=== PATIENT | female | born 1955 | race Caucasian/White ===

== ENCOUNTER 2016-11-08 11:00 | Inpatient (IN) | payer BC, MEDICAID ==
[~2016-11-08] VITALS: Ht 175.2 cm; Wt 65.5 kg
[2016-11-08] MEDS ORDERED: XANAX0.5 MG PO (12:01)
[2016-11-08] MEDS ORDERED: BACLOFEN20 M1 PO (12:02)
[2016-11-08] MEDS ORDERED: LEXAPRO20 MG PO (12:03)
[2016-11-08] MEDS ORDERED: ASPIRIN CHEWABL81 MG PO (14:55)
[2016-11-08] MEDS ORDERED: OXYCODONE AND A1 T12 PO (14:56)
[2016-11-08] MEDS ORDERED: PRILOSEC20 M1 PO (14:57)
[2016-11-08] MEDS ORDERED: LYRICA100 M1 PO (14:57)
[2016-11-08 20:47] VITALS: BP 124/65
[2016-11-08 22:15] LABS: BILIRUBIN NEGATIVE (NEGATIVE); BLOOD 3+ (NEGATIVE); CLARITY SL CLOUDY (CLEAR); COLOR YELLOW (YELLOW); GLUCOSE NEGATIVE (NEGATIVE); KETONE NEGATIVE (NEGATIVE); LEUKO ESTERASE TRACE (NEGATIVE); NITRITE NEGATIVE (NEGATIVE); PH 5.5 (5.0-9.0); PROTEIN NEGATIVE (NEGATIVE); SPECIFIC GRAVITY 1.025 (1.005-1.030); UROBILINOGEN 0.2 E.U./dl (0.2-1.0)
[2016-11-08 22:27] LABS: EPITHELIAL CELLS 35-40
[2016-11-08 22:28] LABS: BACTERIA TRACE; RBC 21-30 rbc/hpf (0-2); URINE REFLEX COMMENT YES (NO)
[2016-11-09 06:39] LABS: BASO % 0.5 % (0.0-1.0); EOS # 0.2 10*3/uL (0.0-0.4); EOS % 2.8 % (1.0-4.0); HEMOGLOBIN 11.8 g/dl (12.0-16.0); LYMPH # 1.7 10*3/uL (1.3-4.4); LYMPH % 29.4 % (27.0-41.0); MEAN CORPUSCULAR HGB 30.8 pg (27.0-31.0); MEAN CORPUSCULAR HGB CONC 32.8 g/dl (33.0-37.0); MEAN PLATELET VOLUME 10.6 fl (9.6-12.3); MONO # 0.5 10*3/uL (0.1-1.0); MONO % 8.6 % (3.0-9.0); NEUT # 3.3 10*3/uL (2.3-7.9); NEUT % 58.5 % (47.0-73.0); PLATELET COUNT AUTOMATED 153 10*3/uL (130-400); RED BLOOD COUNT 3.83 10*6/uL (4.10-5.10); RED CELL DISTRI WIDTH 13.5 % (0-14.5); WHITE BLOOD COUNT 5.7 10*3/uL (4.8-10.8)
[2016-11-09 07:25] LABS: ALBUMIN 2.8 gm/dl (3.1-4.5); BILIRUBIN, TOTAL 0.3 mg/dl (0.2-1.0); BUN 11 mg/dl (7-24); CARBON DIOXIDE 29 mmol/L (21-32); CHLORIDE 109 mmol/L (98-107); EST GLOM FILT AFRICAN AMERICAN > 60 ml/min; GLUCOSE 89 mg/dL (65-99); POTASSIUM 3.9 mmol/L (3.5-5.1); SGOT/AST 16 IU/L (3-35); SGPT/ALT 21 U/L (12-78); SODIUM 145 mmol/L (136-145); TOTAL PROTEIN 5.8 gm/dL (6.4-8.2)
[2016-11-09 07:34] LABS: ALKALINE PHOSPHATASE 62 U/L (45-117)
[2016-11-09 07:44] LABS: FOLIC ACID 8.89 ng/mL (>5.38); VITAMIN D, 25-HYDROXY 38.4 ng/mL (30-100)
[2016-11-09 07:51] VITALS: BP 108/63
[2016-11-09 19:56] VITALS: BP 114/79
[2016-11-10 06:51] VITALS: BP 127/75
[2016-11-10 20:48] VITALS: BP 120/77
[2016-11-11 08:24] VITALS: BP 102/75
[2016-11-11 20:00] VITALS: BP 110/62
[2016-11-12 08:05] VITALS: BP 108/73
[2016-11-12 20:00] VITALS: BP 108/62
[2016-11-13 07:59] VITALS: BP 113/71
[2016-11-13 20:00] VITALS: BP 138/54
[2016-11-14 07:53] VITALS: BP 128/82
[2016-11-14] MEDS ORDERED: DULOXETINE HCL30 MG PO (09:15)
[2016-11-14] MEDS ORDERED: Mysoline50 MG PO (09:15)
[2016-11-14] MEDS ORDERED: LYRICA50 M1 PO (09:15)
[2016-11-14] MEDS ORDERED: Zostrix 0.1% T (09:15)
[2016-11-14] MEDS ORDERED: TIZANIDINE HCL4 MG PO (09:15)
== END 2016-11-14 10:58 | disposition home or self-care (01) | DRG 885 ==
LOC: 3N 11:00
PROVIDERS: Psychiatry & Neurology Psychiatry
DX: F33.2 Major depressive disorder, recurrent severe without psychotic features (principal); G20 Parkinson's disease; R45.851 Suicidal ideations; I47.1 Supraventricular tachycardia; F43.10 Post-traumatic stress disorder, unspecified; F41.1 Generalized anxiety disorder; M79.7 Fibromyalgia; G44.009 Cluster headache syndrome, unspecified, not intractable; F17.210 Nicotine dependence, cigarettes, uncomplicated; R31.29 Other microscopic hematuria; F34.1 Dysthymic disorder; G25.0 Essential tremor; Z98.51 Tubal ligation status; Z80.1 Family history of malignant neoplasm of trachea, bronchus and lung; Z88.8 Allergy status to other drugs, medicaments and biological substances; Z79.82 Long term (current) use of aspirin; Z71.6 Tobacco abuse counseling; Z79.899 Other long term (current) drug therapy; Z79.1 Long term (current) use of non-steroidal anti-inflammatories (NSAID)